=== PATIENT | female | born 1955 | race Caucasian/White ===

== ENCOUNTER → 2024-03-08 09:08 | Day surgery (SDC) | payer MEDICARE, OTHER, SELFPAY ==
[2024-03-08 10:02] VITALS: BP 129/41
[2024-03-08 10:07] LABS: APTT 30.1 Sec (23.4-35.0); INR 1.17
[2024-03-08 10:08] LABS: Glucose - Point of Care 86 mg/dl (70-99)
[2024-03-08] MEDS: NSS 500 IV (10:41)
[2024-03-08 10:43] LABS: Hematocrit 32.7 % (37.0-47.0); Hemoglobin 10.8 g/dL (12.0-16.0); Mean Platelet Volume 9.7 fL (7.4-10.4); Platelet Count 128 10^3/uL (130-400); Red Blood Cell Count 3.27 10^6/uL (4.20-5.40); Red Cell Dist. Width 15.2 % (11.5-14.5); White Blood Cell Count 6.4 10^3/uL (4.8-10.8)
[2024-03-08 10:54] LABS: Blood Urea Nitrogen 23 mg/dl (7-17); Calcium 9.8 mg/dl (8.4-10.2); Carbon Dioxide 18 mmol/L (22-30); Chloride 103 mmol/L (98-107); Glucose 102 mg/dl (70-99); Potassium 3.5 mmol/L (3.5-5.1); Sodium 140 mmol/L (135-145); eGFR 21.73
--- NOTE | 2024-03-08 11:19 | W.SUR.PREOP ---
Addendum entered and electronically signed by Stefano Washington MD 03/08/24 11:20:
Addendum note patient was hospitalized at [facility] for an upper GI bleed in December (2 months ago). No active bleeding currently.
Original Note:
Pre-Operative Surgical Note
-
I have examined this patient prior to the performance of the scheduled procedure.
The patient's condition is unchanged from the time of the current History and
Physical and the patient is able to undergo the scheduled procedure.
--- NOTE | 2024-03-08 12:53 | W.SUR.POST ---
Surgical Immediate Post Op
Note
Pre Op Diagnosis: ESRD
Post Op Diagnosis: ESRD
Procedure Performed: LUE fistulagram, balloon angioplasty with cutting balloon and covered stent of venous outflow stenosis
Primary Surgeon: Stefano Washington MD
Secondary Surgeons: N/A
Anesthesia: MAC
Estimated Blood Loss: Less than 2ml
Fluids: See anesthesia flowsheet
Drains/Shunts: N/A
Specimens/Cultures: N/A
Doppler/Duplex/Angio (Y/N): Y
Complications: None
Operative Findings: Successful treatment of outflow vein stenosis
[2024-03-08 13:07] VITALS: BP 111/61
[2024-03-08 13:14] LABS: Glucose - Point of Care 92 mg/dl (70-99)
[2024-03-08 13:15] VITALS: BP 113/71
[2024-03-08 13:30] VITALS: BP 121/70
[2024-03-08 13:45] VITALS: BP 130/72
[2024-03-08 14:00] VITALS: BP 126/69
--- NOTE | 2024-03-08 16:55 | OR.RPT ---
Operative Report
Operative Report
PROCEDURE DATE: 03/08/2024
Preoperative diagnosis:
1. End-stage renal disease on hemodialysis.
2. Difficulty with cannulation left upper extremity arteriovenous fistula.
Postoperative diagnosis: Same
Procedure:
1. Left upper extremity fistulogram and central venogram.
2. Balloon angioplasty of outflow stenosis with standard 7 mm angioplasty balloon.
3. Balloon angioplasty of outflow vein stenosis with 6 mm cutting angioplasty balloon.
4. Placement of [place] Viabahn covered stent 8 mm x 5 cm in the outflow vein.
Surgeon: Felix
Chief Client Officer: None
Complications: None
Anesthesia: Local, sedation
Fluoroscopy:
4.5 min
13 mGy
2.7 Gy.cm2
Indications for procedure:
68-year-old female with multiple medical problems including morbid obesity. Underwent several left upper extremity arteriovenous access creation's. Most recently was a transposed left upper extremity brachiobasilic fistula. She had severe
thrombocytopenia as well. She was ruled out for HIT. 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 Platelets finally recovered. Therefore brought for fistulogram. I had recommended access of the fistula, but they noted clots being retrieved from the fistula. Therefore
they could not access. She continued with the catheter for long-term. 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 Risk/benefits/alternatives were discussed regarding fistulogram.
She understood all wish to proceed.
Description of procedure:
Patient was identified, brought to the operating room. Placed on the table in the supine position. After the adequate administration of anesthesia, the patient was prepped and draped in the standard surgical fashion. A standard preoperative
timeout was undertaken and everybody was in agreement with the plan.
The left upper extremity fistula outflow vein was punctured and a central facing direction under direct duplex ultrasound guidance in the distal upper arm. This was done with a micropuncture kit. A micropuncture sheath was then advanced. Left
upper extremity fistulogram and central venogram demonstrated widely patent left upper extremity fistula. There was an area about 3 to 4 cm proximal to the existing stent (which was widely patent) where the vein was somewhat irregular and there was
some opacity suggesting a web or significant stenosis. Central venogram demonstrated no evidence of any central venous stenosis. At the this point I performed fistulogram with compression of the fistula and confirm no evidence of inflow or
proximal anastomotic stenosis. Therefore at this point I exchanged over a 0.035 inch wire for a 5 Wallisian sheath. A 0.035 inch wire was used to cross the area of stenosis. I then performed balloon angioplasty of the stenotic segment with a 7 mm
balloon. However, I could not get the waist in the balloon to resolve in the focal stenotic segment. Therefore I then exchanged for a 6 Wallisian sheath and then a 0.018 inch wire. I then used a 6 mm cutting balloon which I was able to get to
profile. I then used a 7 mm balloon again to dilate the area slightly better. Completion angiogram now demonstrated resolution of the stenosis but extravasation from the vein could be seen. I therefore then used a 7 mm balloon again to try to
tamponade this with prolonged inflation. However completion still demonstrated extravasation. Therefore I then quickly exchanged for a 7 Wallisian sheath and then reexchanged back for a 0.018 inch wire. I then used an 8 mm x 5 cm [place] Viabahn
covered stent to cover the pseudoaneurysm leaked area. I post angioplastied this with an 8 mm angioplasty balloon. Completion angiogram now demonstrated excellent result with no extravasation. Excellent flow through the stented segment. There is
no evidence of any residual stenosis. At this point is very satisfied. The wires and catheters were withdrawn. A 4-0 Monocryl pursestring stitch was placed around the sheath entry site and was tied down as the sheath was withdrawn. Manual
pressure was also applied. Hemostasis was fully achieved. There is an excellent thrill in the fistula upon completion.
The patient tolerated procedure well.
== END | disposition home or self-care (01) ==
LOC: CATH 09:08
PROVIDERS: ATTENDING PHYSICIAN Surgery Vascular Surgery; FAMILY PHYSICIAN Family Medicine
DX: T82.858A Stenosis of other vascular prosthetic devices, implants and grafts, initial encounter (principal); Y83.2 Surgical operation with anastomosis, bypass or graft as the cause of abnormal reaction of the patient, or of later complication, without mention of misadventure at the time of the procedure; E66.01 Morbid (severe) obesity due to excess calories; Z99.2 Dependence on renal dialysis; N18.6 End stage renal disease; I87.1 Compression of vein
CPT/HCPCS: 36903; 76937; 80048; 82962; 85027; 85610; 85730; 93005; C1725; C1769; C1874; C1894; Q9967

== ENCOUNTER → 2024-04-12 13:34 | Outpatient (REF) | payer MEDICARE, OTHER, SELFPAY | LOC: RAD 13:34 | PROVIDERS: ATTENDING PHYSICIAN Surgery Vascular Surgery; FAMILY PHYSICIAN Family Medicine | DX: I77.0 Arteriovenous fistula, acquired (principal) | CPT/HCPCS: 93990 ==

== ENCOUNTER → 2024-05-08 10:34 | Outpatient (REF) | payer MEDICARE, OTHER, SELFPAY | LOC: RAD 10:34 | PROVIDERS: ATTENDING PHYSICIAN Surgery Vascular Surgery; FAMILY PHYSICIAN Family Medicine | DX: I77.0 Arteriovenous fistula, acquired (principal) | CPT/HCPCS: 93990 ==